=== PATIENT | female | born 1990 | race African-American/Black ===

== ENCOUNTER → 2022-08-31 | Outpatient (CLI) | LOC: M SOG 13:03 | PROVIDERS: ATTEND Orthopaedic Surgery Hand Surgery | DX: G56.03 Carpal tunnel syndrome, bilateral upper limbs (principal) ==

== ENCOUNTER → 2022-09-01 | Outpatient (CLI) | payer OTHER ==
[2022-09-01 17:36] LABS: BASO # 0.1 10^3/uL (0.0-0.2); BASO % 0.7 % (0.0-1.0); EOS # 0.1 10^3/uL (0.0-0.5); EOS % 1.6 % (0.0-3.0); HEMATOCRIT 44.1 % (36.0-47.0); HEMOGLOBIN 13.6 g/dl (12.0-15.5); LYMPH # 3.7 10^3/uL (1.5-5.0); LYMPH % 48.4 % (24.0-44.0); MEAN CORPUSCULAR HEMOGLOBIN 27.6 pg (27.0-33.0); MEAN CORPUSCULAR HGB CONC 30.8 g/dl (32.0-36.5); MEAN CORPUSCULAR VOLUME 89.6 fl (80.0-96.0); MONO # 0.5 10^3/uL (0.0-0.8); NEUTROPHILS # 3.3 10^3/uL (1.5-8.5); NEUTROPHILS % 42.9 % (36.0-66.0); PLATELET COUNT, AUTOMATED 336 10^3/uL (150-450); RED BLOOD COUNT 4.92 10^6/uL (4.00-5.40); WHITE BLOOD COUNT 7.7 10^3/uL (4.0-10.0)
[2022-09-01 18:05] LABS: ALBUMIN 3.9 GM/DL (3.2-5.2); ALT/SGPT 28 U/L (12-78); BILIRUBIN,TOTAL 0.2 MG/DL (0.2-1.0); BLOOD UREA NITROGEN 14 MG/DL (7-18); CALCIUM LEVEL 9.5 MG/DL (8.5-10.1); CARBON DIOXIDE LEVEL 30 MEQ/L (21-32); CHLORIDE LEVEL 105 MEQ/L (98-107); CREATININE FOR GFR 1.03 MG/DL (0.55-1.30); GLOMERULAR FILTRATION RATE > 60.0 (>60); GLUCOSE, FASTING 78 MG/DL (70-100); RHEUMATOID FACTOR QUANT < 10.0 IU/ML (<15.0); SODIUM LEVEL 137 MEQ/L (136-145); TOTAL PROTEIN 7.3 GM/DL (6.4-8.2); URIC ACID 4.2 MG/DL (2.6-6.0)
[2022-09-01 18:11] LABS: ERYTHROCYTE SEDIMENTATION RATE 6 mm/hr (0-20)
== END ==
LOC: M LAB 16:25
PROVIDERS: ATTEND Orthopaedic Surgery Hand Surgery
DX: M25.532 Pain in left wrist (principal); G56.03 Carpal tunnel syndrome, bilateral upper limbs; M25.531 Pain in right wrist

== ENCOUNTER → 2022-09-24 | Outpatient (CLI) | payer OTHER | LOC: M RAD 17:47 | PROVIDERS: ATTEND Otolaryngology | DX: J32.9 Chronic sinusitis, unspecified (principal) ==

== ENCOUNTER 2022-12-08 22:27 | Emergency (ER) | payer OTHER ==
[~2022-12-08] VITALS: Ht 165.1 cm; Wt 93.9 kg
[2022-12-08 23:42] LABS: BASO % 0.6 % (0.0-1.0); EOS # 0.1 10^3/uL (0.0-0.5); EOS % 1.4 % (0.0-3.0); HEMATOCRIT 37.9 % (36.0-47.0); HEMOGLOBIN 12.3 g/dl (12.0-15.5); LYMPH # 3.1 10^3/uL (1.5-5.0); LYMPH % 43.4 % (24.0-44.0); MEAN CORPUSCULAR HEMOGLOBIN 28.5 pg (27.0-33.0); MEAN CORPUSCULAR HGB CONC 32.5 g/dl (32.0-36.5); MEAN CORPUSCULAR VOLUME 87.7 fl (80.0-96.0); MONO # 0.5 10^3/uL (0.0-0.8); MONO % 6.9 % (2.0-8.0); NEUTROPHILS # 3.4 10^3/uL (1.5-8.5); NEUTROPHILS % 47.4 % (36.0-66.0); PLATELET COUNT, AUTOMATED 259 10^3/uL (150-450); RED BLOOD COUNT 4.32 10^6/uL (4.00-5.40); WHITE BLOOD COUNT 7.1 10^3/uL (4.0-10.0)
[2022-12-09 00:03] LABS: BLOOD UREA NITROGEN 13 MG/DL (9-23); CALCIUM LEVEL 9.2 MG/DL (8.5-10.1); CARBON DIOXIDE LEVEL 23 MMOL/L (20-31); CHLORIDE LEVEL 105 MMOL/L (98-107); CREATININE FOR GFR 0.73 MG/DL (0.55-1.30); GLOMERULAR FILTRATION RATE > 60.0 (>60); GLUCOSE, FASTING 85 MG/DL (60-100); POTASSIUM SERUM 4.3 MMOL/L (3.5-5.1); SODIUM LEVEL 136 MMOL/L (136-145)
[2022-12-09 00:18] LABS: HCG, SERUM QUANTITATIVE 59284.2 MIU/ML (<4.2)
[2022-12-09] MEDS ORDERED: NS 1,000 ML IV ONE ×2 (07:00→08:25)
[2022-12-09] MEDS ORDERED: METOCLOPRAMIDE INJ 10MG/2ML VIAL IV ONE (07:00)
[2022-12-09] MEDS ORDERED: REGL10TA6 PO (09:03)
[2022-12-09] MEDS ORDERED: MACR100C43 PO (09:10)
[2022-12-09 09:13] VITALS: BP 142/87
== END 2022-12-09 09:19 | disposition home or self-care (01) ==
LOC: M ED 22:27
DX: O23.41 Unspecified infection of urinary tract in pregnancy, first trimester (principal); O21.9 Vomiting of pregnancy, unspecified; J45.909 Unspecified asthma, uncomplicated; M32.9 Systemic lupus erythematosus, unspecified; Z88.5 Allergy status to narcotic agent; Z88.8 Allergy status to other drugs, medicaments and biological substances; Z79.810 Long term (current) use of selective estrogen receptor modulators (SERMs); Z79.899 Other long term (current) drug therapy

== ENCOUNTER 2023-05-15 17:46 | Outpatient (CLI) | payer OTHER ==
[~2023-05-15] VITALS: Ht 165.1 cm; Wt 107.1 kg
[~2023-05-15 17:46] MED LIST: MACR100C43 PO; REGL10TA6 PO
[2023-05-15 18:06] VITALS: BP 103/52
[2023-05-15] MEDS ORDERED: CYCL5TAB PO (18:12)
[2023-05-15] MEDS ORDERED: PRENTAB9 PO (18:12)
[2023-05-15] MEDS ORDERED: ACET325C5 PO (18:12)
[2023-05-15] MEDS ORDERED: PRED5CON PO (18:13)
[2023-05-15] MEDS ORDERED: diphenhydrAMINE 25MG CAP PO ONE (18:20)
[2023-05-15] MEDS ORDERED: METOCLOPRAMIDE 10MG TAB PO ONE (18:20)
[2023-05-15] MEDS ORDERED: PLAQ200T4 PO (18:23)
[2023-05-15] MEDS ORDERED: HOME MED LIST COMPLETE! XX SCH (18:25)
[2023-05-15 18:35] LABS: APPEARANCE, URINE CLOUDY (CLEAR); BACTERIA, URINE AUTO 1+ (NEGATIVE); BILIRUBIN, URINE AUTO NEGATIVE (NEGATIVE); BLOOD, URINE BLOOD NEGATIVE (NEGATIVE); COLOR, URINE AMBER (YELLOW); GLUCOSE, URINE (UA) AUTO NEGATIVE (NEGATIVE); KETONE, URINE AUTO NEGATIVE (NEGATIVE); LEUKOCYTE ESTERASE, URINE AUTO 3+ (NEGATIVE); MUCUS, URINE MODERATE (NEGATIVE); NITRITE, URINE AUTO NEGATIVE (NEGATIVE); PROTEIN, URINE AUTO 1+ mg/dL (NEGATIVE); RBC, URINE AUTO 3 /HPF (0-3); SPECIFIC GRAVITY URINE AUTO 1.032 (1.002-1.035); SQUAMOUS EPITHELIAL CELL UR AU 23 /HPF (0-6); WBC, URINE AUTO 38 /HPF (0-3)
[2023-05-15 18:43] VITALS: BP 103/50
[2023-05-15 19:59] VITALS: BP 107/60
== END 2023-05-15 20:00 | disposition home or self-care (01) ==
LOC: M LDO 17:46
PROVIDERS: ATTEND Obstetrics & Gynecology
DX: O26.893 Other specified pregnancy related conditions, third trimester (principal); R51.9 Headache, unspecified; R10.2 Pelvic and perineal pain; M32.9 Systemic lupus erythematosus, unspecified; O99.844 Bariatric surgery status complicating childbirth; O99.213 Obesity complicating pregnancy, third trimester; E66.9 Obesity, unspecified; Z88.8 Allergy status to other drugs, medicaments and biological substances; Z3A.33 33 weeks gestation of pregnancy
CPT/HCPCS: 59025; 81001; G0463

== ENCOUNTER → 2023-05-17 | Outpatient (REF) | payer OTHER ==
[~2023-05-17] MED LIST changes: +ACET325C5 PO; +CYCL5TAB PO; +PLAQ200T4 PO; +PRED5CON PO; +PRENTAB9 PO
[2023-05-17 18:32] LABS: BASO # 0.1 10^3/uL (0.0-0.2); BASO % 0.4 % (0.0-1.0); EOS # 0.1 10^3/uL (0.0-0.5); EOS % 1.1 % (0.0-3.0); HEMOGLOBIN 10.3 g/dl (12.0-15.5); LYMPH # 2.2 10^3/uL (1.5-5.0); LYMPH % 17.1 % (24.0-44.0); MEAN CORPUSCULAR HEMOGLOBIN 26.8 pg (27.0-33.0); MEAN CORPUSCULAR HGB CONC 31.2 g/dl (32.0-36.5); MEAN CORPUSCULAR VOLUME 85.7 fl (80.0-96.0); MONO # 1.1 10^3/uL (0.0-0.8); MONO % 8.5 % (2.0-8.0); NEUTROPHILS # 9.1 10^3/uL (1.5-8.5); NEUTROPHILS % 70.6 % (36.0-66.0); PLATELET COUNT, AUTOMATED 243 10^3/uL (150-450); RED BLOOD COUNT 3.85 10^6/uL (4.00-5.40); WHITE BLOOD COUNT 12.9 10^3/uL (4.0-10.0)
[2023-05-17 18:57] LABS: ALBUMIN 2.6 G/DL (3.2-5.2); ALKALINE PHOSPHATASE 129 U/L (46-116); ALT/SGPT 13 U/L (7.0-40); AST/SGOT 13 U/L (<34); BILIRUBIN,TOTAL 0.2 MG/DL (0.3-1.2); BLOOD UREA NITROGEN 5 MG/DL (9-23); CALCIUM LEVEL 8.7 MG/DL (8.5-10.1); CARBON DIOXIDE LEVEL 22 MMOL/L (20-31); CHLORIDE LEVEL 107 MMOL/L (98-107); CREATININE FOR GFR 0.61 MG/DL (0.55-1.30); GLOMERULAR FILTRATION RATE > 60.0 (>60); GLUCOSE, FASTING 68 MG/DL (60-100); POTASSIUM SERUM 3.9 MMOL/L (3.5-5.1); SODIUM LEVEL 138 MMOL/L (136-145); TOTAL PROTEIN 5.7 G/DL (5.7-8.2)
[2023-05-17 18:59] LABS: C REACTIVE PROTEIN QUANTITATIV < 0.40 MG/DL (<1.0)
[2023-05-17 19:00] LABS: COMPLEMENT C3 145.2 MG/DL (84.0-160.0); CREATININE,RANDOM URINE 229.6 MG/DL
[2023-05-17 19:01] LABS: COMPLEMENT C4 22.9 MG/DL (12-36); ERYTHROCYTE SEDIMENTATION RATE 75 mm/hr (0-20)
[2023-05-17 19:28] LABS: AMORPHOUS SEDIMENT SMALL (NEGATIVE); APPEARANCE, URINE CLOUDY (CLEAR); BACTERIA, URINE AUTO 1+ (NEGATIVE); BILIRUBIN, URINE AUTO NEGATIVE (NEGATIVE); BLOOD, URINE BLOOD NEGATIVE (NEGATIVE); COLOR, URINE AMBER (YELLOW); GLUCOSE, URINE (UA) AUTO NEGATIVE (NEGATIVE); KETONE, URINE AUTO NEGATIVE (NEGATIVE); LEUKOCYTE ESTERASE, URINE AUTO 2+ (NEGATIVE); MUCUS, URINE SMALL (NEGATIVE); NITRITE, URINE AUTO NEGATIVE (NEGATIVE); PROTEIN, URINE AUTO NEGATIVE (NEGATIVE); RBC, URINE AUTO 1 /HPF (0-3); SPECIFIC GRAVITY URINE AUTO 1.025 (1.002-1.035); SQUAMOUS EPITHELIAL CELL UR AU 4 /HPF (0-6); WBC, URINE AUTO 13 /HPF (0-3)
[2023-05-20 13:07] LABS: ANTI DS-DNA AB Negative (Negative); COMPLEMENT TOTAL (CH50) > 60 U/mL (>41)
== END ==
LOC: M SFHCRHEU 13:10
PROVIDERS: ATTEND Internal Medicine Rheumatology
DX: M32.19 Other organ or system involvement in systemic lupus erythematosus (principal); O09.93 Supervision of high risk pregnancy, unspecified, third trimester; Z79.899 Other long term (current) drug therapy

== ENCOUNTER 2023-05-26 08:10 | Outpatient (CLI) | payer OTHER ==
[~2023-05-26] VITALS: Ht 165.1 cm; Wt 108.3 kg
[2023-05-26] MEDS ORDERED: ASPI81CH33 PO (08:33)
[2023-05-26] MEDS ORDERED: FAMO20TA PO (08:36)
[2023-05-26] MEDS ORDERED: PROM12.56 PO (08:36)
[2023-05-26] MEDS ORDERED: HOME MED LIST COMPLETE! XX SCH (08:40)
[2023-05-26] MEDS ORDERED: FLUCONAZOLE 50MG TABLET PO ONE (09:35)
[2023-05-26 10:02] LABS: APPEARANCE, URINE CLEAR (CLEAR); BACTERIA, URINE AUTO NEGATIVE (NEGATIVE); BILIRUBIN, URINE AUTO NEGATIVE (NEGATIVE); BLOOD, URINE BLOOD NEGATIVE (NEGATIVE); COLOR, URINE YELLOW (YELLOW); GLUCOSE, URINE (UA) AUTO NEGATIVE (NEGATIVE); KETONE, URINE AUTO NEGATIVE (NEGATIVE); LEUKOCYTE ESTERASE, URINE AUTO TRACE (NEGATIVE); MUCUS, URINE SMALL (NEGATIVE); NITRITE, URINE AUTO NEGATIVE (NEGATIVE); PROTEIN, URINE AUTO NEGATIVE (NEGATIVE); RBC, URINE AUTO 1 /HPF (0-3); SPECIFIC GRAVITY URINE AUTO 1.013 (1.002-1.035); SQUAMOUS EPITHELIAL CELL UR AU 3 /HPF (0-6); UROBILINOGEN, URINE AUTO 0.2 mg/dL (0.0-2.0); WBC, URINE AUTO 2 /HPF (0-3)
== END 2023-05-26 09:56 | disposition home or self-care (01) ==
LOC: M LDO 08:10
PROVIDERS: ATTEND Obstetrics & Gynecology
DX: O26.893 Other specified pregnancy related conditions, third trimester (principal); R25.2 Cramp and spasm; Z3A.33 33 weeks gestation of pregnancy; O23.593 Infection of other part of genital tract in pregnancy, third trimester; Z88.8 Allergy status to other drugs, medicaments and biological substances; Z79.82 Long term (current) use of aspirin; Z79.899 Other long term (current) drug therapy
CPT/HCPCS: 59025; 81001; G0463

== ENCOUNTER 2023-05-29 23:57 | Outpatient (CLI) | payer OTHER ==
[~2023-05-29] VITALS: Ht 165.1 cm; Wt 111.3 kg
[~2023-05-29 23:57] MED LIST changes: +ASPI81CH33 PO; +FAMO20TA PO; +PROM12.56 PO
[2023-05-30] MEDS ORDERED: DIPH-435 PO (00:12)
[2023-05-30] MEDS ORDERED: METO10TA2 PO (00:12)
[2023-05-30] MEDS ORDERED: PRED20TA PO (00:12)
== END 2023-05-30 04:30 | disposition home or self-care (01) ==
LOC: M LDO 23:57
PROVIDERS: ATTEND Obstetrics & Gynecology
DX: O26.893 Other specified pregnancy related conditions, third trimester (principal); M32.9 Systemic lupus erythematosus, unspecified; O99.213 Obesity complicating pregnancy, third trimester; E66.9 Obesity, unspecified; O99.844 Bariatric surgery status complicating childbirth; O13.3 Gestational [pregnancy-induced] hypertension without significant proteinuria, third trimester; Z3A.35 35 weeks gestation of pregnancy; R22.43 Localized swelling, mass and lump, lower limb, bilateral; Z79.52 Long term (current) use of systemic steroids; Z88.8 Allergy status to other drugs, medicaments and biological substances; Z79.82 Long term (current) use of aspirin; Z79.899 Other long term (current) drug therapy
CPT/HCPCS: 59025; 93971; G0463

== ENCOUNTER 2023-06-03 22:12 | Outpatient (CLI) | payer OTHER ==
[~2023-06-03] VITALS: Ht 165.1 cm; Wt 111.2 kg
[~2023-06-03 22:12] MED LIST changes: +DIPH-435 PO; +METO10TA2 PO; +PRED20TA PO
[2023-06-03 22:48] VITALS: BP 90/56
== END 2023-06-04 00:03 | disposition home or self-care (01) ==
LOC: M LDO 22:12
PROVIDERS: ATTEND Obstetrics & Gynecology
DX: O26.893 Other specified pregnancy related conditions, third trimester (principal); N89.8 Other specified noninflammatory disorders of vagina; R10.2 Pelvic and perineal pain; Z3A.36 36 weeks gestation of pregnancy; Z88.8 Allergy status to other drugs, medicaments and biological substances
CPT/HCPCS: 59025; 76815; 81001; 87086; G0463

== ENCOUNTER 2023-06-16 13:23 | Emergency (ER) | payer OTHER ==
[~2023-06-16] VITALS: Ht 165.1 cm; Wt 107.0 kg
[2023-06-16 13:24] VITALS: BP 136/89; TEMP 98.4; O2SAT 99
== END 2023-06-16 18:45 | disposition left against medical advice (07) ==
LOC: M ED 13:23
DX: M54.50 Low back pain, unspecified (principal); J45.909 Unspecified asthma, uncomplicated; Z98.84 Bariatric surgery status; Z88.5 Allergy status to narcotic agent; Z88.8 Allergy status to other drugs, medicaments and biological substances; Z79.899 Other long term (current) drug therapy; Z53.9 Procedure and treatment not carried out, unspecified reason

== ENCOUNTER → 2023-07-15 | Outpatient (REF) | payer OTHER | LOC: M SFHCRHEU 15:29 | PROVIDERS: ATTEND Internal Medicine Rheumatology | DX: M32.19 Other organ or system involvement in systemic lupus erythematosus (principal); Z79.899 Other long term (current) drug therapy; O09.93 Supervision of high risk pregnancy, unspecified, third trimester; Z53.9 Procedure and treatment not carried out, unspecified reason ==

== ENCOUNTER 2023-08-30 15:16 | Outpatient (CLI) | payer OTHER ==
[~2023-08-30 15:16] MED LIST changes: +ACETAMINOPHEN TAB 650MG DOSE (2X325MG) PO ONE; +ALBUTEROL SULFATE 2.5MG/0.5ML INH NEB SOLN INH PRN; +EPINEPHrine INJ 1 MG/ML 1ML AMP IM PRN; +NS 1,000 ML IV SCH; +diphenhydrAMINE 25MG CAP PO ONE; +diphenhydrAMINE 50MG/ML VIAL IV PRN; +methylPREDNISolone 125MG 2ML VIAL IV PRN
[2023-08-30 15:30] VITALS: BP 108/64; O2SAT 97
[2023-08-30] MEDS ORDERED: FERRIC CARBOXYMALTOSE INJ 750 MG in NS 250 ML (>50kg) IV ONE ×3 (16:00)
[2023-08-30 17:05] VITALS: BP 123/83; O2SAT 100
== END 2023-08-30 17:05 | disposition home or self-care (01) ==
LOC: EDBD 15:16 → M INFU 15:16
PROVIDERS: ATTEND Family Medicine
DX: D50.9 Iron deficiency anemia, unspecified (principal); Z88.5 Allergy status to narcotic agent; Z88.8 Allergy status to other drugs, medicaments and biological substances
CPT/HCPCS: 96365; J1439

== ENCOUNTER 2023-09-06 15:15 | Outpatient (CLI) | payer OTHER ==
[~2023-09-06] VITALS: Ht 165.1 cm; Wt 102.0 kg
[~2023-09-06 15:15] MED LIST changes: -ACETAMINOPHEN TAB 650MG DOSE (2X325MG) PO ONE; -NS 1,000 ML IV SCH; -diphenhydrAMINE 25MG CAP PO ONE
[2023-09-06 15:20] VITALS: BP 94/55; O2SAT 99
[2023-09-06] MEDS ORDERED: FERRIC CARBOXYMALTOSE INJ 750 MG in NS 250 ML (>50kg) IV ONE ×3 (15:20)
[2023-09-06] MEDS ORDERED: NS 1,000 ML IV SCH (15:20)
[2023-09-06] MEDS ORDERED: ACETAMINOPHEN TAB 650MG DOSE (2X325MG) PO ONE (15:20)
[2023-09-06] MEDS ORDERED: diphenhydrAMINE 25MG CAP PO ONE (15:20)
[2023-09-06 16:54] VITALS: BP 127/75; O2SAT 100
== END 2023-09-06 17:00 ==
LOC: EDBD → M INFU 15:15
PROVIDERS: ATTEND Family Medicine
DX: D50.9 Iron deficiency anemia, unspecified (principal); Z88.5 Allergy status to narcotic agent; Z88.8 Allergy status to other drugs, medicaments and biological substances
CPT/HCPCS: 96365; J1439

== ENCOUNTER 2023-11-02 16:15 | Outpatient (CLI) | payer OTHER ==
[2023-11-02 16:23] VITALS: BP 130/70; O2SAT 100
[2023-11-02] MEDS ORDERED: ACETAMINOPHEN TAB 650MG DOSE (2X325MG) PO ONE (16:25)
[2023-11-02] MEDS ORDERED: diphenhydrAMINE 25MG CAP PO ONE (16:25)
[2023-11-02] MEDS ORDERED: NS 1,000 ML IV SCH (16:25)
[2023-11-02] MEDS ORDERED: FERRIC CARBOXYMALTOSE INJ 750 MG in NS 250 ML (>50kg) IV ONE ×3 (16:25)
[2023-11-02 17:51] VITALS: BP 126/72; O2SAT 100
== END 2023-11-02 17:52 | disposition home or self-care (01) ==
LOC: M INFU 16:15
PROVIDERS: ATTEND Family Medicine
DX: D50.9 Iron deficiency anemia, unspecified (principal); Z88.5 Allergy status to narcotic agent
CPT/HCPCS: 96365; J1439